=== PATIENT | female | born 1955 | race Two or more races ===

== ENCOUNTER 2019-06-29 08:45 | Inpatient (IN) | payer OTHER ==
[~2019-06-29] VITALS: Ht 157.5 cm; Wt 68.0 kg
[2019-06-29] MEDS ORDERED: HYZAAR 100-12.1 EACH PO (10:20)
[2019-06-29] MEDS ORDERED: CRESTOR10 MG PO (10:20)
[2019-06-29] MEDS ORDERED: METFORMIN HCL1000 M2 PO (10:20)
[2019-06-29] MEDS ORDERED: SYNTHROID75 MCG PO (10:21)
[2019-06-29] MEDS ORDERED: PROTONIX20 MG PO (10:21)
[2019-06-29] MEDS ORDERED: ECOTRIN81 MG PO (10:21)
[2019-06-29] MEDS ORDERED: INTESTINEX680 M1 PO (10:22)
[2019-06-29] MEDS ORDERED: ANASTROZOLE1 MG PO (11:45)
== END 2019-07-06 14:59 | disposition home or self-care (01) | DRG 331 ==
LOC: EDSTATUS 08:45 → ADM 08:45 → SURG 07-04 06:22 → O/R 07-04 06:22 → SURH 07-04 08:45 → SURG 07-04 11:01 → SURH 07-04 16:00 → SURG 07-06 14:59
PROVIDERS: ADMIT Colon & Rectal Surgery
PROC: 0DJD8ZZ Inspection of Lower Intestinal Tract, Via Natural or Artificial Opening Endoscopic (ICD-10-PCS; 2019-07-04)
PROC: 0DTN4ZZ Resection of Sigmoid Colon, Percutaneous Endoscopic Approach (ICD-10-PCS; principal; 2019-07-04 16:00)
DX: K57.32 Diverticulitis of large intestine without perforation or abscess without bleeding (principal); K63.89 Other specified diseases of intestine; I10 Essential (primary) hypertension; E03.8 Other specified hypothyroidism; E11.9 Type 2 diabetes mellitus without complications; Z79.4 Long term (current) use of insulin

== ENCOUNTER → 2020-07-11 08:00 | Outpatient (CLI) | payer OTHER ==
[~2020-07-11 08:00] MED LIST: ANASTROZOLE1 MG PO; CRESTOR10 MG PO; ECOTRIN81 MG PO; HYZAAR 100-12.1 EACH PO; INTESTINEX680 M1 PO; METFORMIN HCL1000 M2 PO; PROTONIX20 MG PO; SYNTHROID75 MCG PO
== END | disposition home or self-care (01) ==
LOC: LAB 08:00 → ADM 14:45 → EDSTATUS 07-18 14:45 → AMB-ENDOS 07-18 14:45
PROVIDERS: ATTEND Colon & Rectal Surgery
DX: U07.1 COVID-19 (principal); K57.32 Diverticulitis of large intestine without perforation or abscess without bleeding; K92.1 Melena

== ENCOUNTER 2020-10-17 08:56 | Day surgery (SDC) | payer OTHER | END 2020-10-17 16:18 | disposition home or self-care (01) | LOC: AMB-ENDOS 08:56 | PROVIDERS: ATTEND Colon & Rectal Surgery | DX: K57.32 Diverticulitis of large intestine without perforation or abscess without bleeding (principal); K64.1 Second degree hemorrhoids; Z20.822 Contact with and (suspected) exposure to COVID-19 ==